=== PATIENT | male | born 1960 | race Caucasian/White ===

== ENCOUNTER → 2019-09-01 11:27 | Outpatient (BNVA) | payer BC, SELFPAY | PROVIDERS: Family Provider Physician Assistant Medical; PCP Physician Assistant Medical; Visit Provider Urology | DX: N30.00 Acute cystitis without hematuria (principal); N40.1 Benign prostatic hyperplasia with lower urinary tract symptoms; N99.89 Other postprocedural complications and disorders of genitourinary system | CPT/HCPCS: 81001; 87086 ==

== ENCOUNTER → 2020-06-03 10:45 | Outpatient (BNVA) | payer BC, SELFPAY | PROVIDERS: Family Provider Physician Assistant Medical; PCP Physician Assistant Medical; Visit Provider Nurse Practitioner Family | DX: Z20.828 Contact with and (suspected) exposure to other viral communicable diseases (principal); R68.89 Other general symptoms and signs | CPT/HCPCS: 71046; 80053; 82728; 83735; 84145; 85025; 85379; 86140; 87400; 87635 ==

== ENCOUNTER 2020-06-15 00:28 | Emergency (ER) | payer BC, SELFPAY ==
[2020-06-15] VITALS (9 sets, daily range): BP systolic 112–140; BP diastolic 63–88; PULSE 59–87; RESP 16–22; TEMP 37.2; O2SAT 91–96; BMI 29.7
--- NOTE | 2020-06-15 00:47 | XR_ITS ---
WS: [id number] PORTABLE CHEST HISTORY: Chest burning COMPARISON: 06/03/2020 Lung volumes are decreased. Mild elevation of the RIGHT hemidiaphragm. Scattered opacifications. Thes e are predominantly linear and may be related to atelectasis. Progressed since 06/03/2020. No pleural effusion or pneumothorax. Cardiac size: Normal. Mediastinum/Aorta: Normal mediastinum. No osseous abnormality seen. XR/XR chest 1V portable [id number] IMPRESSION: Low lung volumes and areas of atelectasis and scattered opacifications.
--- NOTE | 2020-06-15 00:52 | ED_ITS ---
HPI - Chest Pain General: Chief Complaint: Chest Pain Stated Complaint: covid recovered/painful to breathe Time Seen by Provider: 06/15/20 00:45 Source: patient and family Mode of arrival: ambulatory Limitations: no limitations History of Present Illness: HPI narrative: Zohaib is a nice 59-year-old male who comes in complaining of burning chest pain. He also complains of inter mittent sharp pain in the left side of his chest. Patient states that pain began this evening. He states the pain is when he takes a deep breath or coughs. Patient has had the COVID-19 virus but has completely recovered from it. He has been cleared to go back to his normal life by his doctor. He denies any recent fever, increased cough, chest pain on exertion or any other complaints. Patient states otherwise he feels better than when he had Covid. Associated symptoms: Deny abdominal pain, diaphoresis, dyspnea, fever(s), nausea, palpitations, syncope or vomiting Review of Systems Const: Denies: fever(s), chills, body aches, fatigue, malaise or diaphoresis Eyes: Denies: change in vision, blurry vision, photophobia, eye discomfort, eye discharge, eye redness or yellow eyes ENMT: Denies: throat pain, odynophagia, hoarseness, swelling of lips/tongue, ear or mastoid pain, ear discharge, change in hearing or nasal discharge Card: Reports: chest pain; Denies: palpitations, irregular heart rhythm, edema, lightheadedness, syncope, pre-syncope, dyspnea on exertion or orthopnea Resp: Denies: dyspnea, productive cough, non-productive cough, wheezing, hemoptysis or chest congestion GI: Denies: abdominal pain, nausea, vomiting, hematemesis, coffee ground emesis, heartburn, diarrhea, constipation, GI cramping, hematochezia or melena : Denies: flank pain, dysuria, urinary frequency, urinary urgency or hematuria Musc: Denies: neck pain, back pain, extremity pain, extremity swelling, joint pain, joint swelling, joint redness, joint warmth or joint stiffness Skin/Breast: Denies: rash, pruritus, erythema, skin pain or skin tenderness Neuro: Denies: headache(s), numbness in extremities, weakness in extremities, sensory changes, lack of coordination, difficulty walking, dizziness, vertigo, confusion, Slurred speech present or seizure-like activity Saurav/Lymph: Denies: easy bruising, easy bleeding, petechiae, purpura or enlarged lymph nodes All/Imm: Denies: urticaria, throat swelling, tongue swelling, facial swelling or acute wheezing PFSH ED PFSH: Medical History BPH w urinary obs/LUTS Elevated PSA Exposure to COVID-19 virus Flu-like symptoms Nausea Pneumonia Surgical History History of prostate biopsy Status post inguinal hernia repair right Status post transurethral resection of prostate Status post umbilical hernia repair, follow-up exam Family History Mother Dementia Father , at age 74-kidney cancer No problems noted. Social History Smoking and tobacco status: never smoked Alcohol intake: never Adopted: No Caregiver/support person: No Lives independently: No Household members: spouse Marital status: Current occupational status: employed Current occupation: self employed History of recent travel: No Current gender identity: Male Physical Exam Const: COMMON NORMALS: no acute distress, patient oriented x3, no limitations and alert GENERAL APPEARANCE: cooperative HENMT: COMMON NORMALS: normocephalic, atraumatic, external ears normal, EAC's normal and Normal external nose present HEAD & SCALP: normal to inspection, normocephalic and atraumatic FACE & SINUS: normal facial exam and face symmetric NOSE: Normal external nose present and Normal nares present EXTERNAL EAR: Yes external ears normal EXTERNAL AUDITORY CANAL: EAC's normal MOUTH: Normal oral and palatal mucosa present, lip normal and tongue normal Eye: COMMON NORMALS: Equal, round and reactive pupils present and conjunctivae normal GENERAL EYE: appearance normal, both eyes and all related structures ALIGNMENT: Yes alignment normal PERIORBITAL: periorbital findings normal EYELID: eyelids normal CONJUNCTIVA: Yes conjunctivae normal SCLERA: sclerae normal PUPIL: Yes Equal, round and reactive pupils present Neck/C-Spine: COMMON NORMALS: full ROM, no lymphadenopathy, supple, no meningeal signs and no JVD GENERAL: Yes normal visual inspection and Yes trachea midline Chest: COMMONS NORMALS: normal inspection of the chest and normal palpation of entire chest wall Resp: COMMON NORMALS: normal respiratory effort, No retractions, No use of accessory muscles and clear to auscultation bilaterally EFFORT & INSPECTION: Yes able to speak in complete sentences and Yes symmetric chest movement AUSCULTATION: clear to auscultation bilaterally, no crackles, no rales, no rhonchi and no wheezes Cardio: COMMON NORMALS: no JVD, regular rate, regular rhythm, S1 normal heart sound present and S2 normal heart sound present RATE: regular rate RHYTHM: regular rhythm HEART SOUNDS: S1 normal heart sound present, S2 normal heart sound present, no click, no gallops, no murmurs and no rubs GI: COMMON NORMALS: Soft to palpation and No hepatosplenomegaly present PALPATION: Yes Soft to palpation, No Tenderness to palpation present (GI), No Guarding due to palpation present (GI), No Rigid due to palpation, Yes No hepatosplenomegaly present, No Hernia present, No Palpable mass present and No Pulsatile mass present : COMMON NORMALS: Yes no CVA tenderness BLADDER/KIDNEY EXAM: Yes no CVA tenderness Back/Pelvis: COMMON NORMALS: no CVA tenderness, thoracic and lumbar spine normal to inspection, no thoracic nor lumbar tenderness and thoraco-lumbar ROM normal Extremity: COMMON NORMALS: normal to inspection, full ROM, capillary refill normal, no joint enlargement, no clubbing, cyanosis or edema and no calf tenderness Neuro: COMMON NORMALS: patient oriented x3, CN's II-XII intact bilaterally, moves all extremities, no focal motor deficits and no sensory deficits noted SENSORIUM/ORIENTATION: Yes alert MENINGEAL SIGNS: Yes no meningeal signs SPEECH: speech normal Psych: COMMON NORMALS: mental status grossly normal, Normal thought process present, cooperative, normal affect, speech normal and activity/motor behavior normal SPEECH: Yes normal speech THOUGHT PROCESS: Normal thought process present Skin: COMMON NORMALS: no rashes or lesions noted, turgor normal, no jaundice, no petechiae and no mottling GENERAL SKIN EXAM: no rashes or lesions noted and turgor normal Course Vital Signs: Vital signs: Vital Signs Temperature 99 F 06/15/20 00:41 Pulse Rate 73 06/15/20 03:56 Respiratory Rate 19 H 06/15/20 03:56 Blood Pressure 112/63 06/15/20 05:06 Pulse Oximetry 93 06/15/20 05:06 MDM - Chest Pain Lab Data: Attestation: I reviewed the patient's lab results. Labs: Lab Results 06/15/20 06/15/20 06/15/20 Range/Units 00:57 00:57 00:57 WBC 8.9 (4.0-10.0) 10^3/ uL RBC 4.98 (4.1-5.3) 10^6/u L Hgb 15.2 (11.7-16.6) g/dL Hct 45.6 (42.0-52.0) % MCV 91.6 (80-94) fL MCH 30.5 (28.0-34.0) pg MCHC 33.3 (30.0-36.0) g/dL RDW 12.4 (12.1-15.1) % Plt Count 181 (130-400) 10^3/c mm MPV 11.1 H (7.4-10.4) fL Neut % (Auto) 66.7 % Lymph % (Auto) 18.9 % [place] % (Auto) 11.7 % Eos % (Auto) 1.4 % Baso % (Auto) 0.6 % Neut # (Auto) 5.92 (1.8-7.7) 10^3/u L Lymph # (Auto) 1.7 (0.8-4.8) 10^3/u L [place] # (Auto) 1.0 H (0.2-0.9) 10^3/u L Eos # (Auto) 0.1 (0.0-0.8) 10^3/u L Baso # (Auto) 0.1 (0.0-0.1) 10^3/u L Nucleated RBC % (a uto) 0 % Nucleated RBCs # 0.0 /100WBC D-Dimer 1.60 H (0-0.59) ug/mIFE U Sodium 137 (136-145) mmol/L Potassium 4.3 (3.5-5.1) mmol/L Chloride 104 (98-107) mmol/L Carbon Dioxide 24 (22-29) mmol/L Anion Gap 13.3 (5-19) BUN 17 (8-23) mg/dL Creatinine 0.9 (0.7-1.2) mg/dL GFR Calculation 85.8 L (90-130) mL/min Glucose 123 H (65-115) mg/dL Calculated Osmolal ity 287 (285-295) mOsm/k g Lactic Acid (0.5-2.2) mmol/L Calcium 8.7 (8.5-10.5) mg/dL Magnesium 2.3 (1.7-2.3) mg/dL Total Bilirubin 0.5 (0.15-1.2) mg/dL AST 19 (0-40) U/L ALT 31 (0-41) U/L Alkaline Phosphata se 71 (40-130) IU/L Troponin T Baselin e (0-15) ng/L Troponin T 120 Min poarch (0-15) ng/L Delta Troponin T (0-10) ABS# Total Protein 6.5 L (6.6-8.7) g/dL Albumin 3.8 (3.5-5.2) g/dL Globulin 2.7 (1.3-4.6) g/dL 06/15/20 06/15/20 06/15/20 Range/Units 00:57 00:57 02:58 WBC (4.0-10.0) 10^3/ uL RBC (4.1-5.3) 10^6/u L Hgb (11.7-16.6) g/dL Hct (42.0-52.0) % MCV (80-94) fL MCH (28.0-34.0) pg MCHC (30.0-36.0) g/dL RDW (12.1-15.1) % Plt Count (130-400) 10^3/c mm MPV (7.4-10.4) fL Neut % (Auto) % Lymph % (Auto) % [place] % (Auto) % Eos % (Auto) % Baso % (Auto) % Neut # (Auto) (1.8-7.7) 10^3/u L Lymph # (Auto) (0.8-4.8) 10^3/u L [place] # (Auto) (0.2-0.9) 10^3/u L Eos # (Auto) (0.0-0.8) 10^3/u L Baso # (Auto) (0.0-0.1) 10^3/u L Nucleated RBC % (a uto) % Nucleated RBCs # /100WBC D-Dimer (0-0.59) ug/mIFE U Sodium (136-145) mmol/L Potassium (3.5-5.1) mmol/L Chloride (98-107) mmol/L Carbon Dioxide (22-29) mmol/L Anion Gap (5-19) BUN (8-23) mg/dL Creatinine (0.7-1.2) mg/dL GFR Calculation (90-130) mL/min Glucose (65-115) mg/dL Calculated Osmolal ity (285-295) mOsm/k g Lactic Acid 1.3 (0.5-2.2) mmol/L Calcium (8.5-10.5) mg/dL Magnesium (1.7-2.3) mg/dL Total Bilirubin (0.15-1.2) mg/dL AST (0-40) U/L ALT (0-41) U/L Alkaline Phosphata se (40-130) IU/L Troponin T Baselin e 27 H (0-15) ng/L Troponin T 120 Min poarch 29.08 H (0-15) ng/L Delta Troponin T 2.08 (0-10) ABS# Total Protein (6.6-8.7) g/dL Albumin (3.5-5.2) g/dL Globulin (1.3-4.6) g/dL Imaging Data^: CXR: Attestation: I personally reviewed and interpreted this imaging study as follows: My impression: Mild interstitial prominence. No change from previous. CT Chest: Radiologist's impression: [address] [address] [address] Scan Report Signed Patient: Zohaib Cam Unit #: [id number] : 1960 Age/Sex: 59 / M ADM Date: 06/15/20 Loc: ER Room/Bed: Attending Dr: Ordering Provider/Ordering MD: Esme Woodard DO Date of Service: 06/15/20 Procedure(s): CT angio chest PE protcl [id number] Accession Number(s): [id number] Report Number: [id number] PROCEDURE INFORMATION: Exam: CT Angiography Chest With Contrast Exam date and time: 06/15/2020 1:46 AM Age: 59 years old Clinical indication: Abnormal findings; Abnormal diagnostic tests; Elevated d-dimer; Shortness of breath; Additional info: Chest pain, shortness of breath, positive d-dimer TECHNIQUE: Imaging protocol: Computed tomographic angiography of the chest with intravenous contrast. 3D rendering (Not supervised by radiologist): MIP and/or 3D reconstructed images were created by the technologist. Radiation optimization: All CT scans at this facility use at least one of these dose optimization techniques: automated exposure control; mA and/or kV adjustment per patient size (includes targeted exams where dose is matched to clinical indication); or iterative reconstruction. Contrast material: OMNI 350; Contrast volume: 95 ml; Contrast route: INTRAVENOUS (IV); COMPARISON: CR XR chest 2V* [id number] 06/03/2020 10:56 AM RADIATION DOSE METRICS: Total DLP (mGy-cm): 1317.7 FINDINGS: Pulmonary arteries: The pulmonary arterial tree is not well opacified and this examination is nondiagnostic regarding pulmonary emboli. Aorta: No thoracic aortic aneurysm identified. Lungs: Moderate patchy consolidation scattered throughout both lungs, especially involving the lower lobes. Appearance suggests multifocal pneumonia. Pleural space: No pneumothorax or pleural effusion. Heart: Heart size within normal limits. Lymph nodes: No enlarged or abnormal appearing mediastinal/hilar lymph nodes identified. Bones/joints: Unremarkable. No acute fracture. Soft tissues: Unremarkable. Other findings: Images of the upper abdomen were reviewed and are unremarkable. CT/CT angio chest PE protcl [id number] IMPRESSION: 1. The pulmonary arterial tree is not well opacified and this examination is nondiagnostic regarding pulmonary emboli. Consider options or prophylactic treatment with follow-up CT scan in 24 hours, VQ scan, and lower extremity venous ultrasound. 2. Moderate patchy consolidation scattered throughout both lungs, especially involving the lower lobes. Appearance suggests multifocal pneumonia. Radiation Dose CTDIVOL = (mGy): DLP = 1317.7 (mGy-cm) Dictated By: Jonn Reed MD Signed By: Jonn Reed MD Signed Date/Time: 06/15/20247 DD/ 5 US Vascular: My impression: Ultrasound bilateral venous duplex, tech interpretation -negative for DVT. EKG Data^: EKG 1: Attestation: I personally reviewed and interpreted this EKG as follows: EKG interpretation date: 06/15/20 EKG interpretation time: 01:00 Interpretation: Normal sinus rhythm 86 beats a minute, no blocks, normal intervals, nonspecific ST and T wave changes, baseline artifact present. EKG 2: Attestation: I personally reviewed and interpreted this EKG as follows: EKG interpretation date: 06/15/20 EKG interpretation time: 04:03 Interpretation: Normal sinus rhythm at 67 beats a minute, no blocks, normal intervals, no acute ST or T wave changes. Discharge Plan Discharge Prescriptions: No Action amlodipine 5 mg tablet 5 mg PO DAILY RF: 0 atenolol 50 mg tablet 50 mg PO DAILY RF: 0 prednisone 20 mg tablet 40 mg PO DAILY 5 Days Qty: 10 RF: 0 levofloxacin 500 mg tablet 500 mg PO DAILY 7 Days Qty: 7 RF: 0 albuterol sulfate 0.63 mg/3 mL solution for nebulization 0.63 mg INHALATION Q6H PRN (Reason: shortness of breath or wheezing) 30 Days Qty: 90 RF: 0 fluticasone propion-salmeterol [Advair Diskus] 500-50 mcg/dose blister with device 1 inh INHALATION BID 30 Days Qty: 60 RF: 0 ondansetron HCl [Zofran] 4 mg tablet 4 mg PO Q8H PRN (Reason: nausea and vomiting) 5 Days Qty: 15 RF: 0 Sign Out Sign Out Data: Sign Out Comment: Case turned over to Dr. Ashley at change of shift. Last updated by Esme Woodard at 06/15/20 05:43 Coding Level of Care Code ED Financial Planner for Chg Fwd Exam Comprehensive
--- NOTE | 2020-06-15 00:52 | ECG_ITS ---
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
[2020-06-15 01:16] LABS: Basophils # 0.1 10^3/uL (0.0-0.1); Basophils % 0.6 %; Eosinophils # 0.1 10^3/uL (0.0-0.8); Eosinophils % 1.4 %; Hematocrit 45.6 % (42.0-52.0); Hemoglobin 15.2 g/dL (11.7-16.6); Lymphocytes # 1.7 10^3/uL (0.8-4.8); Lymphocytes % 18.9 %; Mean Corpuscular HGB Conc 33.3 g/dL (30.0-36.0); Mean Corpuscular Hemoglobin 30.5 pg (28.0-34.0); Mean Corpuscular Volume 91.6 fL (80-94); Mean Platelet Volume 11.1 fL (7.4-10.4); Monocytes % 11.7 %; Neutrophils # 5.92 10^3/uL (1.8-7.7); Neutrophils % 66.7 %; Nucleated Red Blood Cells % 0 %; Platelet Count 181 10^3/cmm (130-400); Red Blood Count 4.98 10^6/uL (4.1-5.3); Red Cell Distribution Width 12.4 % (12.1-15.1); White Blood Count 8.9 10^3/uL (4.0-10.0)
[2020-06-15] MEDS: ondansetron 2 mg/ML SDV 2 mL 4 MG IVP (01:20)
[2020-06-15] MEDS: morphine 4 mg/mL SDV 1 mL IVP (01:21)
[2020-06-15] MEDS: sodium chloride 0.9% 1,000 ML 999 ML IV (01:21)
--- NOTE | 2020-06-15 01:31 | CTR_ITS ---
PROCEDURE INFORMATION: Exam: CT Angiography Chest With Contrast Exam date and time: 06/15/2020 1:46 AM Age: 59 years old Clinical indication: Abnormal findings; Abnormal diagnostic tests; Elevated d-dimer; Shortness of breath; Additional info: Chest pain, shortness of breath, positive d-dimer TECHNIQUE: Imaging protocol: Computed tomographic angiography of the chest with intravenous contrast. 3D rendering (Not supervised by radiologist): MIP and/or 3D reconstructed images were created by the technologist. Radiation optimization: All CT scans at this facility use at least one of these dose optimization techniques: automated exposure control; mA and/or kV adjustment per patient size (includes targeted exams where dose is matched to clinical indication); or iterative reconstruction. Contrast material: OMNI 350; Contrast volume: 95 ml; Contrast route: INTRAVENOUS (IV); COMPARISON: CR XR chest 2V* [id number] 06/03/2020 10:56 AM RADIATION DOSE METRICS: Total DLP (mGy-cm): 1317.7 FINDINGS: Pulmonary arteries: The pulmonary arterial tree is not well opacified and this examination is nondiagnostic regarding pulmonary emboli. Aorta: No thoracic aortic aneurysm identified. Lungs: Moderate patchy consolidation scattered throughout both lungs, especially involving the lower lobes. Appearance suggests multifocal pneumonia. Pleural space: No pneumothorax or pleural effusion. Heart: Heart size within normal limits. Lymph nodes: No enlarged or abnormal appearing mediastinal/hilar lymph nodes identified. Bones/joints: Unremarkable. No acute fracture. Soft tissues: Unremarkable. Other findings: Images of the upper abdomen were reviewed and are unremarkable. CT/CT angio chest PE protcl [id number] IMPRESSION: 1. The pulmonary arterial tree is not well opacified and this examination is nondiagnostic regarding pulmonary emboli. Consider options or prophylactic treatment with follow-up CT scan in 24 hours, VQ scan, and lower extremity venous ultrasound. 2. Moderate patchy consolidation scattered throughout both lungs, especially involving the lower lobes. Appearance suggests multifocal pneumonia. Radiation Dose CTDIVOL = (mGy): DLP = 1317.7 (mGy-cm)
[2020-06-15 01:32] LABS: Alanine Aminotransferase 31 U/L (0-41); Albumin Level 3.8 g/dL (3.5-5.2); Alkaline Phosphatase 71 IU/L (40-130); Aspartate Amino Transferase 19 U/L (0-40); Blood Urea Nitrogen 17 mg/dL (8-23); Calcium 8.7 mg/dL (8.5-10.5); Carbon Dioxide 24 mmol/L (22-29); Chloride 104 mmol/L (98-107); Creatinine Clr Calc Pharmacy 108.2144; Globulin 2.7 g/dL (1.3-4.6); Glomerular Filtration Rate 85.8 mL/min (90-130); Glucose 123 mg/dL (65-115); Magnesium 2.3 mg/dL (1.7-2.3); Osmolality Calculated 287 mOsm/kg (285-295); Sodium 137 mmol/L (136-145); Total Bilirubin 0.5 mg/dL (0.15-1.2); Total Protein 6.5 g/dL (6.6-8.7)
[2020-06-15 01:33] LABS: Slide Review Slide Review Perform
[2020-06-15 01:34] LABS: Troponin(5th) Baseline 27 ng/L (0-15)
[2020-06-15 01:40] LABS: Anion Gap 13.3 (5-19); Potassium 4.3 mmol/L (3.5-5.1)
[2020-06-15 01:56] LABS: Lactic Sepsis W/Reflex 1.3 mmol/L (0.5-2.2)
[2020-06-15] MEDS: iohexol 350 mg/mL 100 mL Btl IV (02:02)
[2020-06-15] MEDS: aspirin 325 mg Tablet PO (02:19)
--- NOTE | 2020-06-15 02:52 | ECG_ITS ---
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
--- NOTE | 2020-06-15 03:03 | USCV_ITS ---
Zohaib Cam Age: 59 Gender: M : 1960 Exam Date: 06/15/2020 03:42 Ordering Phys: Esme Woodard DO Technologist: Dav Palacios Exam Location: [facility] [place]_ Indication: BILAT EDEMA HISTORY: Lower extremity swelling. PROCEDURES: Venous duplex imaging was performed in bilateral lower extremities. The venous duplex Doppler examination of both lower extremities was performed in the standard fashion. Bilaterally, the common femoral, superficial femoral, profunda femoral, popliteal, posterior tibial, greater saphenous veins, and the peroneal trunk were identified and interrogated in the standard fashion. FINDINGS: Normal 2-D Doppler and augmentation and compressibility throughout the lower extremity venous structures. Additional imaging through the proximal calf veins also reveals no thrombus. Limited evaluation of the greater saphenous vein is patent with no thrombus. CONCLUSIONS No DVT bilateral lower extremities. Dr. Amanda Sanford DO (Electronically Signed) Final Date: 15 June 2020 09:02 S
[2020-06-15 03:40] LABS: Troponin 5 2HR 29.08 ng/L (0-15); Troponin 5 2HR Delta 2.08 ABS# (0-10)
[2020-06-15] MEDS: sodium chloride 0.9% 1,000 ML 100 ML IV (03:50)
--- NOTE | 2020-06-15 04:00 | NM_ITS ---
WS: [id number] NUCLEAR MEDICINE VENTILATION/PERFUSION LUNG SCAN HISTORY: Chest pain, positive D-dimer COMPARISON: CT head 06/15/2020 and chest radiograph 06/15/2020 TECHNIQUE: Ventilation: 32.7 mCi of Technetium 99 DTPA aerosol inhaled. Perfusion: 5.4 mCi of technetium 99m MAA IV. Mild deposition of radionuclide on the ventilatory portion. Diaphragms are elevated, RIGHT greater th an LEFT. Heart shadow is prominent. Perfusion is near normal. There are no unmatched defects. NM/NM pul vent and perfus* [id number] IMPRESSION: Low probability PE.
--- NOTE | 2020-06-15 06:52 | ECG_ITS ---
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
[2020-06-15 08:06] LABS: Troponin 5 6HR 28.47 ng/L (0-15); Troponin 5 6HR Delta 1.47 ng/L (0-12)
== END 2020-06-15 10:37 | disposition home or self-care (01) ==
PROVIDERS: Emergency Medicine; Emergency Provider Family Medicine; PCP Nurse Practitioner Family
DX: R07.9 Chest pain, unspecified (principal)
CPT/HCPCS: 12345; 71045; 71275; 78014; 80053; 83605; 83735; 84484; 85025; 85378; 93005; 93970; 96361; 96374; 96375; 96376; 99284; A9540; A9567; J2270; J2405; J7030; Q9967

== ENCOUNTER → 2020-09-28 13:39 | Outpatient (BNVA) | payer BC, SELFPAY | PROVIDERS: PCP Physician Assistant Medical; Visit Provider Urology | DX: R97.20 Elevated prostate specific antigen [PSA] (principal); N13.8 Other obstructive and reflux uropathy; N40.1 Benign prostatic hyperplasia with lower urinary tract symptoms | CPT/HCPCS: 81003; 84153 ==

== ENCOUNTER 2023-07-11 14:51 | Emergency (ER) | payer OTHER, MEDICAID, SELFPAY ==
[2023-07-11 14:59] VITALS: BP 155/85; PULSE 47; RESP 16; TEMP 36.4; O2SAT 95; BMI 31.6
--- NOTE | 2023-07-11 15:07 | USR_ITS ---
PROCEDURE INFORMATION: Exam: US Duplex Left Upper Extremity Veins, Limited Exam date and time: 07/11/2023 3:35 PM Age: 62 years old Clinical indication: Swelling (edema) of limb; Upper extremity, left; Additional info: Arm swelling TECHNIQUE: Imaging protocol: Real-time duplex ultrasound of the left extremity with 2-D fritz scale, color Doppler flow and spectral waveform analysis including responses to compression and other maneuvers (when performed) with image documentation. Limited exam focused on the left upper extremity veins. COMPARISON: CT angio chest PE protcl [id number] 06/15/2020 1:57 AM FINDINGS: Left deep veins: Internal jugular, subclavian, axillary, brachial, radial and ulnar veins patent without thrombus. Normal compressibility, augmentation response and/or Doppler waveforms. Superficial veins: Heterogeneously echogenic, occlusive thrombus in a superficial vessel in the region of the antecubital fossa. Visualized cephalic and basilic veins are patent without thrombus. Soft tissues: Mild subcutaneous edema. US/[place] [id number] IMPRESSION: 1. No sonographic evidence of deep vein thrombosis. 2. Heterogeneously echogenic, occlusive thrombus in a superficial vessel in the region of the antecubital fossa.
--- NOTE | 2023-07-11 15:26 | ED_ITS ---
HPI - Extremity Problem General: Chief complaint: Extremity Problem,Nontraumatic Stated complaint: Left arm swollen Time Seen by Provider: 07/11/23 15:25 History of Present Illness: 62-year-old male patient comes in today for complaints of a swollen tender knot to the left antecubital space of the arm. Patient has a large vein there that is often used for blood draws but has not been used in a long time for any venous access. Patient reports occasionally it will get inflamed but he has noticed today that it is more inflamed and has some increasing tenderness going into the inner upper arm. Patient was seen at primary care and referred to the ER for further evaluation to rule out DVT. No distal swelling or redness is noted. Patient denies any chronic medical problems such as diabetes or heart disease. Patient does take medications for hypertension. Associated symptoms: Deny chest pain or fever(s) Review of Systems General: Reports: 10 or more systems reviewed and unremarkable except in HPI and below Const: Denies: fever(s) Card: Denies: chest pain Resp: Denies: dyspnea GI: Denies: nausea, vomiting, diarrhea or constipation : Denies: difficulty urinating Musc: Reports: extremity pain and extremity swelling Skin/Breast: Reports: erythema (Left antecubital space) Neuro: Denies: headache(s) PFSH ED PFSH: Medical History BPH w urinary obs/LUTS Elevated PSA Exposure to COVID-19 virus Flu-like symptoms Nausea Pneumonia Surgical History History of prostate biopsy Status post inguinal hernia repair right Status post transurethral resection of prostate Status post umbilical hernia repair, follow-up exam Family History Mother , at age 92 Dementia Father , at age 74-kidney cancer No problems noted. Social History Smoking and tobacco/nicotine status: never used tobacco/nicotine Alcohol intake: never Substance/Drug Use: never Adopted: No Caregiver/support person: No Lives independently: No Household members: spouse Marital status: Current occupational status: employed Current occupation: self employed Current gender identity: Male Physical Exam Const: COMMON NORMALS: alert HENMT: COMMON NORMALS: normocephalic HEAD & SCALP: normocephalic Neck/C-Spine: COMMON NORMALS: full ROM Resp: COMMON NORMALS: normal respiratory effort and clear to auscultation bilaterally AUSCULTATION: clear to auscultation bilaterally Cardio: COMMON NORMALS: regular rate RATE: regular rate Extremity: LEFT UPPER EXTREMITY: Yes elbow joint (Tender nodule to antecubital vein) Left elbow: Yes inspection, Yes palpation, Yes ROM and Yes neurovascular exam Neuro: SENSORIUM/ORIENTATION: Yes alert Skin: NARRATIVE SKIN EXAM: Redness noted to the left anterior elbow antecubital space Course Vital Signs: Vital signs: Vital Signs Temperature 97.5 F L 07/11/23 14:59 Pulse Rate 47 L 07/11/23 14:59 Respiratory Rate 16 07/11/23 14:59 Blood Pressure 155/85 07/11/23 14:59 Pulse Oximetry 95 07/11/23 14:59 Oxygen Delivery Me thod Room Air 07/11/23 14:59 MDM - Extremity (Nontraumatic) Medical Decision Making Patient comes in for evaluation of swelling and redness to the left antecubital space of the left upper arm. Patient moves extremities well. No significant swelling or redness is noted distally. Patient has a nodule to the left antecubital space with some mild erythema and ropiness of the vein. Differential diagnosis includes superficial thrombophlebitis, unlikely DVT, or abscess. Ultrasound upper extremity noted no DVT, it did note a superficial thrombus to the antecubital fossa vein. Reviewed exam with Dr. Blair, attending ER physician, he agreed with plan for treatment with naproxen, warm packs, and Keflex. Patient reported understanding of care plan and need for follow-up or return to the ER for worsening symptoms. Lab Data Radiology Impressions Venous Duplex 07/11/23 15:07 IMPRESSION: 1. No sonographic evidence of deep vein thrombosis. 2. Heterogeneously echogenic, occlusive thrombus in a superficial vessel in the region of the antecubital fossa. All radiology interpretation(s) finalized by discharge Discharge Plan Discharge Patient Disposition: Home Clinical Impression: Superficial thrombophlebitis Qualifiers: Superficial thrombophlebitis-Involved body area: upper extremity Laterality: left Qualified Code(s): I80.8 - Phlebitis and thrombophlebitis of other sites Condition: Stable Prescriptions: New naproxen 500 mg tablet 500 mg PO BID Qty: 30 0RF cephalexin 500 mg capsule 500 mg PO Q8H 7 Days Qty: 21 0RF No Action sumatriptan succinate [Imitrex] 50 mg tablet 50 mg PO Q2H PRN Rx Instructions: do not exceed 4 doses per 24 hrs atenolol 50 mg tablet 50 mg PO DAILY azithromycin 250 mg tablet See Rx Instructions PO .COMPLEX Qty: 6 0RF Rx Instructions: For 250 mg dose pack: take 500 mg today (day 1), then 250 mg for 4 days (days 2-5) PO benzonatate 100 mg capsule 100 mg PO TID PRN (Reason: cough) Qty: 20 0RF amlodipine-benazepril 5-10 mg capsule 1 cap PO DAILY Discharge Orders: Discharge ED (Routine); Ordered 07/11/23 Ordered By: Gildardo Aparicio Referrals: aPm Guy MD [Primary Care Provider] - Discharge Diet: Usual diet Discharge Activity: Increase activity as tolerated Patient Instructions: Superficial Thrombophlebitis (ED) Activity Restrictions/Additional Instructions: Home and rest. Activity as tolerated. Monitor for worsening redness and swelling distally to the area of the middle arm. Follow-up with primary care for further instructions. Return to ED for worsening symptoms. Coding Level of Care Code ED Critical Care Rn for Robert Merchant
== END 2023-07-11 16:21 | disposition home or self-care (01) ==
PROVIDERS: Emergency Provider Nurse Practitioner Family; PCP Family Medicine
DX: I80.8 Phlebitis and thrombophlebitis of other sites (principal)
CPT/HCPCS: 93971; 99284